=== PATIENT | female | born 1980 | race Caucasian/White ===

== ENCOUNTER 2022-05-27 10:14 | Outpatient (CLI) | payer OTHER | END 2022-05-27 11:04 | disposition home or self-care (01) | LOC: SONOGRAMA 10:14 | PROVIDERS: ATTEND Surgery | DX: D24.2 Benign neoplasm of left breast (principal); N60.11 Diffuse cystic mastopathy of right breast; N60.12 Diffuse cystic mastopathy of left breast ==